=== PATIENT | male | born 1995 | race Caucasian/White ===

== ENCOUNTER 2016-04-28 22:34 | Emergency (ER) | payer BC ==
[~2016-04-28] VITALS: Ht 182.9 cm; Wt 114.6 kg
[~2016-04-28 22:34] MED LIST: APTIOM800 MG PO; CARAFATE1 GM PO; CITALOPRAM HBR10 MG PO; ENDOCET 5-3251 EACH PO; KEFLEX500 MG PO; MOTRIN800 MG PO; NAPROSYN500 MG PO; PRILOSEC40 MG PO; TYLENOL WITH C1 EACH PO
[2016-04-28 23:01] LABS: HEMATOCRIT 42.5 % (38.0-50.0); MCH 28.6 PG (29.0-34.0); MCHC 34.4 G/DL (30.0-36.0); MCV 83.3 FL (86-99); MEAN PLAT.VOLUME 9.4 uM^3 (9.0-12.4); PLATELET COUNT 264 K/uL (156-360); RBC DIS.WIDTH-CV 12.2 % (11.8-14.6); RBC DIS.WIDTH-SD 36.7 % (39-53); WHITE BLOOD COUNT 9.4 K/uL (4.1-10.2)
[2016-04-28 23:21] LABS: CHLORIDE 106 mEq/L (99-109); POTASSIUM 4.1 mEq/L (3.7-5.4); SODIUM 141 mEq/L (136-147)
[2016-04-28 23:22] LABS: GLUCOSE 81 mg/dL (70-99)
[2016-04-28 23:24] LABS: ANION GAP 11 MEQ/L (2-14)
[2016-04-28 23:26] LABS: GFR ESTIMATE (CALCULATED) > 59 mL/min/
[2016-04-28 23:27] LABS: UREA NITROGEN (BUN) 17 mg/dL (9-23)
[2016-04-28 23:29] LABS: CREATINE KINASE 144 IU/L (1-294); TOTAL CK 144 IU/L (1-294)
[2016-04-28 23:35] LABS: CK-MB 0.7 ng/mL (0.0-4.9)
[2016-04-28 23:48] LABS: ADD MIUA? NO; BILIRUBIN NEGATIVE; BLOOD NEGATIVE; COLOR YELLOW ((YELLOW)); GLUCOSE (STRIP) NEGATIVE; KETONES NEGATIVE; LEUKOCYTES NEGATIVE; NITRITE NEGATIVE; PROTEIN (STRIP) TRACE; SPECIFIC GRAVITY 1.025 (1.000-1.030); UCUL ADDED? NO; UROBILINOGEN 0.2 MG/DL (0.2-1.0)
[2016-04-29] LABS: AMPHETAMINE NEGATIVE (500 ng/mL); BARBITURATES NEGATIVE (200 ng/mL); BENZODIAZEPINES NEGATIVE (150 ng/mL); COCAINE NEGATIVE (150 ng/mL); INTERNAL CONTROLS VALID? YES; METHADONE NEGATIVE (200 ng/mL); METHAMPHETAMINE NEGATIVE (500 ng/mL); OPIATES (MORPHINE) NEGATIVE (100 ng/mL); OXYCODONE NEGATIVE (100 ng/mL); PHENCYCLIDINE NEGATIVE (25 ng/mL); PROPOXYPHENE NEGATIVE (300 ng/mL); THC CANNABINOIDS NEGATIVE (50 ng/mL); TRICYCLIC ANTIDEPRESSANTS NEGATIVE (300 ng/mL)
[2016-04-29 00:39] VITALS: BP 122/70
== END 2016-04-29 00:40 | disposition home or self-care (01) ==
LOC: EME 22:34
PROVIDERS: Emergency Medicine
DX: G40.909 Epilepsy, unspecified, not intractable, without status epilepticus (principal); R51 Headache
CPT/HCPCS: 80048; 81003; 82550; 82553; 85027; 99281; 99283

== ENCOUNTER 2016-05-06 00:20 | Emergency (ER) | payer BC ==
[~2016-05-06] VITALS: Ht 188 cm; Wt 113.2 kg
[2016-05-06 01:23] LABS: EOSINOPHIL (%) 1.3 % (0-5); EOSINOPHIL COUNT 0.1 K/uL (0-0.3); HEMATOCRIT 42.2 % (38.0-50.0); IMMATURE GRANULOCYTE (%) 0.2 % (0.0-0.7); IMMATURE GRANULOCYTE COUNT 0.2 K/uL; MCH 28.5 PG (29.0-34.0); MCHC 34.1 G/DL (30.0-36.0); MCV 83.4 FL (86-99); MEAN PLAT.VOLUME 9.7 uM^3 (9.0-12.4); MONOCYTE (%) 6.3 % (3-12); MONOCYTE COUNT 0.7 K/uL (0-0.8); NEUTROPHIL (%) 52.9 % (45-76); NEUTROPHIL COUNT 5.4 K/uL (1.8-6.4); PLATELET COUNT 283 K/uL (156-360); RBC DIS.WIDTH-CV 12.2 % (11.8-14.6); RBC DIS.WIDTH-SD 36.7 % (39-53); RED BLOOD COUNT 5.06 M/uL (4.00-5.50); WHITE BLOOD COUNT 10.3 K/uL (4.1-10.2)
[2016-05-06 01:33] LABS: CHLORIDE 106 mEq/L (99-109); SODIUM 140 mEq/L (136-147)
[2016-05-06 01:34] LABS: GLUCOSE 88 mg/dL (70-99)
[2016-05-06 01:36] LABS: ANION GAP 10 MEQ/L (2-14)
[2016-05-06 01:38] LABS: GFR ESTIMATE (CALCULATED) > 59 mL/min/
[2016-05-06 01:39] LABS: UREA NITROGEN (BUN) 16 mg/dL (9-23)
[2016-05-06 02:47] VITALS: BP 119/64
== END 2016-05-06 02:49 | disposition home or self-care (01) ==
LOC: EME → EDBD 00:20 → EME 02:49
PROVIDERS: Personal Emergency Response Attendant
DX: G40.909 Epilepsy, unspecified, not intractable, without status epilepticus (principal)
CPT/HCPCS: 80048; 85025; 93005; 99281; 99284

== ENCOUNTER 2016-06-03 00:01 | Emergency (ER) | payer OTHER ==
[~2016-06-03] VITALS: Ht 188 cm; Wt 115.0 kg
[2016-06-03 00:53] LABS: HEMATOCRIT 44.4 % (38.0-50.0); MCH 28.1 PG (29.0-34.0); MCHC 32.9 G/DL (30.0-36.0); MCV 85.4 FL (86-99); MEAN PLAT.VOLUME 9.4 uM^3 (9.0-12.4); PLATELET COUNT 316 K/uL (156-360); RBC DIS.WIDTH-CV 12.2 % (11.8-14.6); RBC DIS.WIDTH-SD 37.9 % (39-53); WHITE BLOOD COUNT 10.4 K/uL (4.1-10.2)
[2016-06-03 01:03] LABS: CHLORIDE 106 mEq/L (99-109); POTASSIUM 3.8 mEq/L (3.7-5.4); SODIUM 139 mEq/L (136-147)
[2016-06-03 01:06] LABS: GLUCOSE 95 mg/dL (70-99)
[2016-06-03 01:07] LABS: ANION GAP 11 MEQ/L (2-14)
[2016-06-03 01:08] LABS: TOTAL BILIRUBIN 0.6 mg/dL (0.0-1.0)
[2016-06-03 01:09] LABS: ALKALINE PHOSPHATASE 53 IU/L (3-129); GFR ESTIMATE (CALCULATED) > 59 mL/min/
[2016-06-03 01:10] LABS: UREA NITROGEN (BUN) 21 mg/dL (9-23)
[2016-06-03 01:12] LABS: CREATINE KINASE 215 IU/L (1-294); TOTAL CK 215 IU/L (1-294)
[2016-06-03 01:18] LABS: CK-MB 0.7 ng/mL (0.0-4.9)
[2016-06-03 01:54] VITALS: BP 122/70
== END 2016-06-03 01:56 | disposition home or self-care (01) ==
LOC: EME → EDBD 00:01 → EME 01:56
PROVIDERS: Emergency Medicine
DX: G40.909 Epilepsy, unspecified, not intractable, without status epilepticus (principal); R51 Headache
CPT/HCPCS: 80053; 82550; 82553; 85027; 99281; 99284

== ENCOUNTER 2016-06-30 22:31 | Emergency (ER) | payer OTHER ==
[~2016-06-30] VITALS: Ht 188 cm; Wt 119.9 kg
[2016-06-30 23:39] LABS: MCH 28.2 PG (29.0-34.0); MCHC 32.7 G/DL (30.0-36.0); MCV 86.4 FL (86-99); MEAN PLAT.VOLUME 9.7 uM^3 (9.0-12.4); PLATELET COUNT 340 K/uL (156-360); RBC DIS.WIDTH-CV 12.4 % (11.8-14.6); RBC DIS.WIDTH-SD 39.4 % (39-53); RED BLOOD COUNT 5.21 M/uL (4.00-5.50); WHITE BLOOD COUNT 11.6 K/uL (4.1-10.2)
[2016-06-30 23:53] LABS: CHLORIDE 105 mEq/L (99-109); POTASSIUM 4.2 mEq/L (3.7-5.4); SODIUM 140 mEq/L (136-147)
[2016-06-30 23:55] LABS: GLUCOSE 87 mg/dL (70-99)
[2016-06-30 23:56] LABS: ANION GAP 10 MEQ/L (2-14)
[2016-06-30 23:59] LABS: GFR ESTIMATE (CALCULATED) > 59 mL/min/
[2016-07-01] LABS: UREA NITROGEN (BUN) 19 mg/dL (9-23)
[2016-07-01 00:08] LABS: BILIRUBIN NEGATIVE; BLOOD NEGATIVE; GLUCOSE (STRIP) NEGATIVE; KETONES NEGATIVE; LEUKOCYTES NEGATIVE; NITRITE NEGATIVE; PROTEIN (STRIP) NEGATIVE; SPECIFIC GRAVITY 1.023 (1.000-1.030); UROBILINOGEN 0.2 MG/DL (0.2-1.0)
[2016-07-01 00:14] LABS: COLOR STRAW ((YELLOW))
[2016-07-01 00:15] LABS: ADD MIUA? NO; UCUL ADDED? NO
[2016-07-01 00:51] VITALS: BP 124/78
== END 2016-07-01 00:58 | disposition home or self-care (01) ==
LOC: EME 22:31
DX: G40.909 Epilepsy, unspecified, not intractable, without status epilepticus (principal); M25.512 Pain in left shoulder
CPT/HCPCS: 73030; 80048; 80156; 80184; 80185; 81003; 85027; 99281; 99284

== ENCOUNTER 2016-07-14 23:34 | Emergency (ER) | payer OTHER ==
[~2016-07-14] VITALS: Ht 185.4 cm; Wt 119.2 kg
[2016-07-15 00:59] LABS: BASOPHIL COUNT 0.1 K/uL (0-0.1); EOSINOPHIL (%) 1.3 % (0-5); EOSINOPHIL COUNT 0.1 K/uL (0-0.3); HEMATOCRIT 43.5 % (38.0-50.0); IMMATURE GRANULOCYTE (%) 0.4 % (0.0-0.7); INSTRUMENT ABS NEUTROPHIL CT 6.4 K/uL; LYMPHOCYTE COUNT 3.6 K/uL (1.0-2.8); MCH 28.3 PG (29.0-34.0); MCHC 33.1 G/DL (30.0-36.0); MCV 85.5 FL (86-99); MEAN PLAT.VOLUME 9.2 uM^3 (9.0-12.4); MONOCYTE (%) 6.7 % (3-12); MONOCYTE COUNT 0.7 K/uL (0-0.8); NEUTROPHIL (%) 58.1 % (45-76); NEUTROPHIL COUNT 6.4 K/uL (1.8-6.4); PLATELET COUNT 311 K/uL (156-360); RBC DIS.WIDTH-CV 12.3 % (11.8-14.6); RBC DIS.WIDTH-SD 38.1 % (39-53); RED BLOOD COUNT 5.09 M/uL (4.00-5.50); WHITE BLOOD COUNT 10.9 K/uL (4.1-10.2)
[2016-07-15 01:08] LABS: CHLORIDE 107 mEq/L (99-109); POTASSIUM 4.1 mEq/L (3.7-5.4); SODIUM 140 mEq/L (136-147)
[2016-07-15 01:10] LABS: GLUCOSE 88 mg/dL (70-99)
[2016-07-15 01:11] LABS: ANION GAP 11 MEQ/L (2-14)
[2016-07-15 01:14] LABS: GFR ESTIMATE (CALCULATED) > 59 mL/min/
[2016-07-15 01:15] LABS: UREA NITROGEN (BUN) 23 mg/dL (9-23)
[2016-07-15 01:16] LABS: CREATINE KINASE 166 IU/L (1-294)
[2016-07-15 02:43] LABS: TROP-I INTERPRETATION NEGATIVE; TROPONIN-I < 0.01 ng/mL (0.0-0.30)
[2016-07-15] MEDS ORDERED: APTIOM800 MG PO (03:04)
[2016-07-15 03:14] VITALS: BP 110/55
== END 2016-07-15 03:15 | disposition home or self-care (01) ==
LOC: EME 23:34
PROVIDERS: Emergency Medicine
DX: G40.909 Epilepsy, unspecified, not intractable, without status epilepticus (principal); F41.9 Anxiety disorder, unspecified
CPT/HCPCS: 70450; 80048; 82550; 84484; 85025; 93005; 99281; 99284; J1200; J2765; J7030

== ENCOUNTER 2016-08-26 23:09 | Emergency (ER) | payer OTHER ==
[~2016-08-26] VITALS: Ht 188 cm; Wt 123.0 kg
[2016-08-26] MEDS ORDERED: MOTRIN600 MG PO (23:52)
[2016-08-27 00:01] VITALS: BP 113/79
== END 2016-08-27 00:02 | disposition home or self-care (01) ==
LOC: EXP 23:09 → EME 23:09 → EXP 08-27 00:02
DX: S60.221A Contusion of right hand, initial encounter (principal); W22.09XA Striking against other stationary object, initial encounter
CPT/HCPCS: 73130; 99281; 99283

== ENCOUNTER 2016-09-18 22:10 | Emergency (ER) | payer OTHER ==
[~2016-09-18] VITALS: Ht 188 cm; Wt 125.6 kg
[~2016-09-18 22:10] MED LIST changes: +MOTRIN600 MG PO
[2016-09-19 01:24] VITALS: BP 118/73
== END 2016-09-19 01:24 | disposition home or self-care (01) ==
LOC: EME 22:10
DX: S93.401A Sprain of unspecified ligament of right ankle, initial encounter (principal); W17.2XXA Fall into hole, initial encounter
CPT/HCPCS: 73610; 73630; 99281; 99284

== ENCOUNTER 2016-11-15 13:17 | Emergency (ER) | payer OTHER ==
[~2016-11-15] VITALS: Ht 182.9 cm; Wt 123.4 kg
[2016-11-15 14:24] LABS: EOSINOPHIL (%) 1.2 % (0-5); EOSINOPHIL COUNT 0.1 K/uL (0-0.3); HEMATOCRIT 47.3 % (38.0-50.0); IMMATURE GRANULOCYTE (%) 0.2 % (0.0-0.7); INSTRUMENT ABS NEUTROPHIL CT 5.7 K/uL; LYMPHOCYTE COUNT 2.3 K/uL (1.0-2.8); MCH 27.3 PG (29.0-34.0); MCHC 32.3 G/DL (30.0-36.0); MCV 84.5 FL (86-99); MEAN PLAT.VOLUME 9.1 uM^3 (9.0-12.4); MONOCYTE COUNT 0.5 K/uL (0-0.8); NEUTROPHIL (%) 66.1 % (45-76); NEUTROPHIL COUNT 5.7 K/uL (1.8-6.4); PLATELET COUNT 303 K/uL (156-360); RBC DIS.WIDTH-CV 11.9 % (11.8-14.6); RBC DIS.WIDTH-SD 36.3 % (39-53); WHITE BLOOD COUNT 8.7 K/uL (4.1-10.2)
[2016-11-15 14:35] LABS: CHLORIDE 103 mEq/L (99-109); POTASSIUM 4.7 mEq/L (3.7-5.4); SODIUM 138 mEq/L (136-147)
[2016-11-15 14:37] LABS: GLUCOSE 92 mg/dL (70-99)
[2016-11-15 14:38] LABS: ANION GAP 10 MEQ/L (2-14)
[2016-11-15 14:40] LABS: GFR ESTIMATE (CALCULATED) > 59 mL/min/
[2016-11-15 14:41] LABS: UREA NITROGEN (BUN) 16 mg/dL (9-23)
[2016-11-15 14:43] LABS: CREATINE KINASE 115 IU/L (1-294); TOTAL CK 115 IU/L (1-294)
[2016-11-15 14:45] LABS: TROP-I INTERPRETATION NEGATIVE; TROPONIN-I < 0.01 ng/mL (0.0-0.30)
[2016-11-15 14:53] LABS: CK-MB 0.4 ng/mL (0.0-4.9)
[2016-11-15 15:55] VITALS: BP 114/74
== END 2016-11-15 17:47 | disposition home or self-care (01) ==
LOC: EME 13:17
PROVIDERS: Emergency Medicine
DX: R56.9 Unspecified convulsions (principal)
CPT/HCPCS: 70450; 71010; 80048; 82550; 82553; 84484; 85025; 93005; 99281; 99284; J2405

== ENCOUNTER 2016-12-20 22:41 | Emergency (ER) | payer OTHER ==
[~2016-12-20] VITALS: Ht 188 cm; Wt 122.3 kg
[2016-12-21] MEDS ORDERED: DOXYCYCLINE MO100 MG PO (01:09)
[2016-12-21 01:19] VITALS: BP 132/80
== END 2016-12-21 01:21 | disposition home or self-care (01) ==
LOC: EME 22:41
PROC: 0H9AXZZ Drainage of Inguinal Skin, External Approach (ICD-10-PCS; principal; 2016-12-21)
DX: L02.214 Cutaneous abscess of groin (principal); G40.909 Epilepsy, unspecified, not intractable, without status epilepticus
CPT/HCPCS: 99281; 99284

== ENCOUNTER 2016-12-28 12:13 | Inpatient (IN) | payer OTHER ==
[~2016-12-28] VITALS: Ht 188 cm; Wt 118.5 kg
[~2016-12-28 12:13] MED LIST changes: +DOXYCYCLINE MO100 MG PO
[2016-12-28 16:29] LABS: CHLORIDE 107 mEq/L (99-109); POTASSIUM 3.8 mEq/L (3.7-5.4); SODIUM 140 mEq/L (136-147)
[2016-12-28 16:30] LABS: BASOPHIL COUNT 0.1 K/uL (0-0.1); EOSINOPHIL (%) 1.2 % (0-5); EOSINOPHIL COUNT 0.1 K/uL (0-0.3); HEMATOCRIT 42.5 % (38.0-50.0); IMMATURE GRANULOCYTE (%) 0.5 % (0.0-0.7); IMMATURE GRANULOCYTE COUNT 0.1 K/uL; INSTRUMENT ABS NEUTROPHIL CT 6.9 K/uL; LYMPHOCYTE COUNT 2.3 K/uL (1.0-2.8); MCHC 33.2 G/DL (30.0-36.0); MCV 84.3 FL (86-99); MEAN PLAT.VOLUME 9.4 uM^3 (9.0-12.4); MONOCYTE (%) 6.2 % (3-12); MONOCYTE COUNT 0.6 K/uL (0-0.8); NEUTROPHIL (%) 68.8 % (45-76); NEUTROPHIL COUNT 6.9 K/uL (1.8-6.4); PLATELET COUNT 400 K/uL (156-360); RBC DIS.WIDTH-CV 12.5 % (11.8-14.6); RBC DIS.WIDTH-SD 38.1 % (39-53); RED BLOOD COUNT 5.04 M/uL (4.00-5.50); WHITE BLOOD COUNT 10.1 K/uL (4.1-10.2)
[2016-12-28 16:32] LABS: GLUCOSE 79 mg/dL (70-99)
[2016-12-28 16:33] LABS: ANION GAP 12 MEQ/L (2-14)
[2016-12-28 16:34] LABS: TOTAL BILIRUBIN 0.5 mg/dL (0.0-1.0)
[2016-12-28 16:35] LABS: ALKALINE PHOSPHATASE 94 IU/L (3-129); GFR ESTIMATE (CALCULATED) > 59 mL/min/
[2016-12-28 16:36] LABS: UREA NITROGEN (BUN) 18 mg/dL (9-23)
[2016-12-28] MEDS ORDERED: CLEOCIN300 MG PO (17:36)
[2016-12-28] MEDS ORDERED: IBUPROFEN800 MG PO (17:37)
[2016-12-28] MEDS ORDERED: TOPAMAX50 MG PO (17:40)
[2016-12-28 18:38] VITALS: BP 124/60
[2016-12-29 01:28] VITALS: BP 105/60
[2016-12-29 06:57] LABS: MCH 27.2 PG (29.0-34.0); MCHC 31.7 G/DL (30.0-36.0); MCV 85.9 FL (86-99); MEAN PLAT.VOLUME 9.5 uM^3 (9.0-12.4); PLATELET COUNT 353 K/uL (156-360); RBC DIS.WIDTH-CV 12.3 % (11.8-14.6); RBC DIS.WIDTH-SD 39.1 % (39-53); RED BLOOD COUNT 4.89 M/uL (4.00-5.50)
[2016-12-29 07:21] LABS: ANION GAP 11 MEQ/L (2-14); CHLORIDE 108 MEQ/L (99-109); GFR ESTIMATE (CALCULATED) > 59 mL/min/; GLUCOSE 92 mg/dL (70-99); SAMPLE HEMOLYSIS CHECK 0; SAMPLE ICTERIC CHECK 0; SAMPLE LIPEMIA CHECK 0; SODIUM 140 MEQ/L (136-147); UREA NITROGEN (BUN) 19 mg/dL (9-23)
[2016-12-29 08:05] VITALS: BP 119/66
[2016-12-29 16:47] VITALS: BP 120/68
[2016-12-29 23:55] VITALS: BP 129/65
[2016-12-30 07:07] LABS: BASOPHIL COUNT 0.1 K/uL (0-0.1); EOSINOPHIL COUNT 0.2 K/uL (0-0.3); HEMATOCRIT 43.2 % (38.0-50.0); IMMATURE GRANULOCYTE (%) 0.7 % (0.0-0.7); IMMATURE GRANULOCYTE COUNT 0.1 K/uL; INSTRUMENT ABS NEUTROPHIL CT 4.6 K/uL; LYMPHOCYTE COUNT 3.3 K/uL (1.0-2.8); MCH 28.3 PG (29.0-34.0); MCHC 33.6 G/DL (30.0-36.0); MCV 84.2 FL (86-99); MEAN PLAT.VOLUME 10.1 uM^3 (9.0-12.4); MONOCYTE (%) 7.9 % (3-12); MONOCYTE COUNT 0.7 K/uL (0-0.8); NEUTROPHIL (%) 51.7 % (45-76); NEUTROPHIL COUNT 4.6 K/uL (1.8-6.4); PLATELET COUNT 343 K/uL (156-360); RBC DIS.WIDTH-CV 12.4 % (11.8-14.6); RBC DIS.WIDTH-SD 37.8 % (39-53); RED BLOOD COUNT 5.13 M/uL (4.00-5.50); WHITE BLOOD COUNT 8.9 K/uL (4.1-10.2)
[2016-12-30 07:42] VITALS: BP 127/62
[2016-12-30 15:54] VITALS: BP 126/60
[2016-12-31 00:01] VITALS: BP 117/53
[2016-12-31 09:33] VITALS: BP 117/66
[2016-12-31 11:00] VITALS: BP 119/68
[2016-12-31 16:18] VITALS: BP 106/55
[2017-01-01 00:16] VITALS: BP 129/66
[2017-01-01 06:00] LABS: BASOPHIL COUNT 0.1 K/uL (0-0.1); EOSINOPHIL (%) 1.7 % (0-5); EOSINOPHIL COUNT 0.2 K/uL (0-0.3); HEMATOCRIT 41.7 % (38.0-50.0); IMMATURE GRANULOCYTE (%) 0.5 % (0.0-0.7); IMMATURE GRANULOCYTE COUNT 0.1 K/uL; INSTRUMENT ABS NEUTROPHIL CT 5.5 K/uL; LYMPHOCYTE COUNT 3.9 K/uL (1.0-2.8); MCH 28.3 PG (29.0-34.0); MCHC 33.6 G/DL (30.0-36.0); MCV 84.4 FL (86-99); MEAN PLAT.VOLUME 9.1 uM^3 (9.0-12.4); MONOCYTE (%) 5.9 % (3-12); MONOCYTE COUNT 0.6 K/uL (0-0.8); NEUTROPHIL (%) 53.6 % (45-76); NEUTROPHIL COUNT 5.5 K/uL (1.8-6.4); PLATELET COUNT 359 K/uL (156-360); RBC DIS.WIDTH-CV 12.2 % (11.8-14.6); RBC DIS.WIDTH-SD 36.9 % (39-53); RED BLOOD COUNT 4.94 M/uL (4.00-5.50); WHITE BLOOD COUNT 10.3 K/uL (4.1-10.2)
[2017-01-01 06:29] LABS: ANION GAP 11 MEQ/L (2-14); CHLORIDE 110 MEQ/L (99-109); GFR ESTIMATE (CALCULATED) > 59 mL/min/; GLUCOSE 92 mg/dL (70-99); POTASSIUM 3.9 MEQ/L (3.7-5.4); SAMPLE HEMOLYSIS CHECK 0; SAMPLE ICTERIC CHECK 0; SAMPLE LIPEMIA CHECK 0; SODIUM 141 MEQ/L (136-147); UREA NITROGEN (BUN) 14 mg/dL (9-23)
[2017-01-01 08:00] VITALS: BP 119/66
[2017-01-01] MEDS ORDERED: AUGMENTIN875 MG PO (08:49)
== END 2017-01-01 11:15 | disposition home or self-care (01) | DRG 603 ==
LOC: EME 12:13 → EDOF 17:03 → 5EAST 17:03 → ENRESERV 17:06 → 5EAST 18:22 → ENPENDDIS 01-01 → 5EAST 01-01 11:15
PROVIDERS: Internal Medicine; Physician Assistant
DX: L03.314 Cellulitis of groin (principal); B95.0 Streptococcus, group A, as the cause of diseases classified elsewhere; Z98.890 Other specified postprocedural states; R74.0 Nonspecific elevation of levels of transaminase and lactic acid dehydrogenase [LDH]
CPT/HCPCS: 72170; 74177; 80048; 80053; 83605; 85025; 85027; 87040; 87205; 99281; 99285; J0295; J0690; J1644; J3010; J7030; J7050

== ENCOUNTER 2017-02-07 22:03 | Emergency (ER) | payer OTHER ==
[~2017-02-07] VITALS: Ht 188 cm; Wt 118.2 kg
[~2017-02-07 22:03] MED LIST changes: +AUGMENTIN875 MG PO; +CLEOCIN300 MG PO; +IBUPROFEN800 MG PO; +TOPAMAX50 MG PO
[2017-02-07 23:00] LABS: HEMATOCRIT 48.7 % (38.0-50.0); MCH 27.6 PG (29.0-34.0); MCHC 33.5 G/DL (30.0-36.0); MCV 82.4 FL (86-99); MEAN PLAT.VOLUME 9.4 uM^3 (9.0-12.4); PLATELET COUNT 377 K/uL (156-360); RBC DIS.WIDTH-CV 13.1 % (11.8-14.6); RBC DIS.WIDTH-SD 39.2 % (39-53); RED BLOOD COUNT 5.91 M/uL (4.00-5.50); WHITE BLOOD COUNT 12.2 K/uL (4.1-10.2)
[2017-02-07 23:13] LABS: CHLORIDE 111 mEq/L (99-109); POTASSIUM 3.5 mEq/L (3.7-5.4); SODIUM 139 mEq/L (136-147)
[2017-02-07 23:16] LABS: GLUCOSE 101 mg/dL (70-99)
[2017-02-07 23:17] LABS: ANION GAP 10 MEQ/L (2-14)
[2017-02-07 23:18] LABS: TOTAL BILIRUBIN 0.9 mg/dL (0.0-1.0)
[2017-02-07 23:19] LABS: ALKALINE PHOSPHATASE 74 IU/L (3-129); GFR ESTIMATE (CALCULATED) > 59 mL/min/
[2017-02-07 23:20] LABS: UREA NITROGEN (BUN) 21 mg/dL (9-23)
[2017-02-08 01:28] LABS: C DIFF TOXIN NEGATIVE (NEGATIVE)
[2017-02-08 01:36] LABS: PROBE CHECK PASS; SPECIMEN PROCESSING CONTROL PASS
[2017-02-08 01:51] VITALS: BP 121/84
== END 2017-02-08 02:03 | disposition home or self-care (01) ==
LOC: EME 22:03
PROVIDERS: Physician Assistant
DX: R19.7 Diarrhea, unspecified (principal); E86.0 Dehydration; R56.9 Unspecified convulsions; Z86.14 Personal history of Methicillin resistant Staphylococcus aureus infection
CPT/HCPCS: 80053; 85027; 87177; 87493; 87506; 99281; 99285